=== PATIENT | female | born 1990 | race Caucasian/White ===

== ENCOUNTER 2020-01-21 00:11 | Emergency (ER) | payer OTHER ==
--- NOTE | 2020-01-21 00:46 | ERPHSYRPT ---
- History of Present Illness Time Seen by Provider: 01/21/20 00:38 Historian: patient Exam Limitations: no limitations Patient Subjective Stated Complaint: pt states she has been having abd pain for the last month. states it got worse tonight. pt states that pain "gurgles across" her abd. Triage Nursing Assessment: pt alert and oriented, answers questions approp. pt ambulatory with steady gait noted. respirations nonlabored with lungs cta. abd soft and nontender with bowel sounds present x4. skin pink warm and dry. Physician History: Vague, crampy abdominal pain that occurs with eating only with the evening meal, not with any other meal, no matter what she eats. Symptoms usually don't last long, no OTC med helps, no fever or abnormal BM's. Timing/Duration: week(s) (4), intermittent Activities at Onset: other (eating evening meal) Quality: cramping Abdominal Pain Onset Location: generalized abdomen Pain Radiation: no radiation Severity of Pain-Max: moderate Severity of Pain-Current: mild Modifying Factors: Improves With: eating (only at supper) Associated Symptoms: denies symptoms Previous symptoms: no prior history Allergies/Adverse Reactions: No Known Drug Allergies Allergy (Verified 03/29/16 20:00) Home Medications: Cyclobenzaprine HCl 10 mg [Cyclobenzaprine 10 MG] 10 mg PO TID PRN 01/21/20 [History] Omeprazole 20 mg PO DAILY 01/21/20 [History] Hx Tetanus, Diphtheria Vaccination/Date Given: No Hx Influenza Vaccination/Date Given: No Hx Pneumococcal Vaccination/Date Given: No Immunizations Up to Date: No Travel Risk - International Travel Have you traveled outside of the country in past 3 weeks: No - Coronavirus Screening Are you exhibiting any of the following symptoms?: No Close contact with a COVID-19 positive Pt in past 14-21 Days: No - Review of Systems Constitutional: No Symptoms Eyes: No Symptoms Ears, Nose, & Throat: No Symptoms Respiratory: No Symptoms Cardiac: No Symptoms Abdominal/Gastrointestinal: Abdominal Pain, Nausea Genitourinary Symptoms: No Symptoms Musculoskeletal: No Symptoms Skin: No Symptoms Neurological: No Symptoms Psychological: No Symptoms Endocrine: No Symptoms Hematologic/Lymphatic: No Symptoms Immunological/Allergic: No Symptoms All Other Systems: Reviewed and Negative - Past Medical History Pertinent Past Medical History: Yes Neurological History: Other ENT History: No Pertinent History Cardiac History: No Pertinent History Respiratory History: No Pertinent History Endocrine Medical History: No Pertinent History Musculoskeletal History: No Pertinent History GI Medical History: No Pertinent History Psycho-Social History: Attention Deficit Disorder, Depression Other Medical History: APPENDECTOMY, HAS 2 CHILDREN AND TUBES TIED. SHE HAD SURGERY ON 11/15/17WITH FOLLOW UP TO REMOVE SUTURES ON 11/28/17 AND SEES HIM BACK IN OFFICE IN 2 WEEKS. - Past Surgical History Past Surgical History: Yes Gastrointestinal: Appendectomy Female Surgical History: Tubal Ligation - Social History Smoking Status: Current every day smoker How long have you smoked: 16 years Exposure to second hand smoke: Yes Drug Use: none Patient Lives Alone: No - Female History Hx Last Menstrual Period: 1 month Hx Now: No (tubal) - Nursing Vital Signs Nursing Vital Signs: Initial Vital Signs Temperature 98.2 F 01/21/20 00:20 Pulse Rate 101 H 01/21/20 00:20 Respiratory Rate 16 01/21/20 00:20 Blood Pressure 136/80 01/21/20 00:20 O2 Sat by Pulse Oximetry 100 01/21/20 00:20 Pain Scale Pain Intensity 4 - Physical Exam General Appearance: no apparent distress, alert Eye Exam: PERRL/EOMI, eyes nml inspection Ears, Nose, Throat Exam: normal ENT inspection, moist mucous membranes Neck Exam: normal inspection Respiratory Exam: normal breath sounds Cardiovascular Exam: regular rate/rhythm Gastrointestinal/Abdomen Exam: soft, normal bowel sounds Pelvic Exam: not done Rectal Exam: deferred Back Exam: normal inspection Extremity Exam: normal inspection Neurologic Exam: alert, oriented x 3, cooperative Skin Exam: normal color SpO2 Interpretation: normal SpO2: 100 O2 Delivery: Room Air - Course Nursing assessment & vital signs reviewed: Yes - CT Exams Abdomen/Pelvis CT Interpretation: Negative, Tele-radiologist Report Ordered Tests: Active Orders 24 hr Category Date Time Status IV Insertion STAT Care 01/21/20 00:41 Completed ABDOMEN AND PELVIS W CONTRAST [CT] Stat Exams 01/21/20 00:44 Taken AMYLASE Stat Lab 01/21/20 00:41 Completed CBC W DIFF Stat Lab 01/21/20 00:41 Completed CMP Stat Lab 01/21/20 00:41 Completed HCG QUALITATIVE,SERUM Stat Lab 01/21/20 00:35 Completed LIPASE Stat Lab 01/21/20 00:41 Completed UA W/RFX UR CULTURE Stat Lab 01/21/20 02:14 Completed Medication Summary Discontinued Medications Generic Name Dose Route Start Last Admin Trade Name Kavita PRN Reason Stop Dose Admin Dicyclomine HCl 20 mg 01/21/20 02:31 01/21/20 02:43 Bentyl 20 Mg PO 01/21/20 02:32 20 mg QID ONE Administration Dicyclomine HCl Confirm 01/21/20 02:42 Bentyl 20 Mg Administered 01/21/20 02:43 Dose 20 mg .ROUTE .STK-MED ONE Lab/Rad Data: Laboratory Result Diagrams 01/21/20 00:41 01/21/20 00:41 Laboratory Results 01/21/20 01/21/20 01/21/20 Range/Units 02:14 00:41 00:41 WBC 9.3 (4.0-10.5) K/mm3 RBC 3.70 L (4.1-5.4) M/mm3 Hgb 12.0 (12.0-16.0) gm/dl Hct 36.6 (35-47) % MCV 98.9 (78-100) fl MCH 32.4 H (26-32) pg MCHC 32.8 (32-36) g/dl RDW 12.2 (11.5-14.0) % Plt Count 218 (150-450) K/mm3 MPV 10.9 (7.5-11.0) fl Gran % 75.3 H (36.0-66.0) % Eos # (Auto) 0.40 (0-0.5) Absolute Lymphs (auto) 1.21 (1.0-4.6) Absolute Monos (auto) 0.68 (0.0-1.3) Lymphocytes % 13.0 L (24.0-44.0) % Monocytes % 7.3 (0.0-12.0) % Eosinophils % 4.3 (0.00-5.0) % Basophils % 0.1 (0.0-0.4) % Absolute Granulocytes 7.04 H (1.4-6.9) Basophils # 0.01 (0-0.4) Sodium 134 L (137-145) mmol/L Potassium 3.4 L (3.5-5.1) mmol/L Chloride 105 (98-107) mmol/L Carbon Dioxide 23 (22-30) mmol/L Anion Gap 9.3 (5-15) MEQ/L BUN 17 (7-17) mg/dL Creatinine 0.62 (0.52-1.04) mg/dL Estimated GFR > 60.0 ML/MIN Glucose 130 H (74-106) mg/dL Calcium 8.5 (8.4-10.2) mg/dL Total Bilirubin 0.20 (0.2-1.3) mg/dL AST 27 (14-36) U/L ALT 17 (0-35) U/L Alkaline Phosphatase 78 (38-126) U/L Serum Total Protein 6.7 (6.3-8.2) g/dL Albumin 4.1 (3.5-5.0) g/dL Amylase 71 (30-110) U/L Lipase 62 (23-300) U/L Serum , Qual (Negative) Urine Color YELLOW (YELLOW) Urine Appearance SLIGHTLY CLOUDY (CLEAR) Urine pH 7.0 (5-6) Ur Specific [place] 1.053 (1.005-1.025) Urine Protein NEGATIVE (Negative) Urine Ketones NEGATIVE (NEGATIVE) Urine Blood NEGATIVE (0-5) Fausto/ul Urine Nitrite NEGATIVE (NEGATIVE) Urine Bilirubin NEGATIVE (NEGATIVE) Urine Urobilinogen NEGATIVE (0-1) mg/dL Ur Leukocyte Esterase SMALL (NEGATIVE) Urine WBC (Auto) 3-5 (0-5) /HPF Urine RBC (Auto) 0-2 (0-2) /HPF U Epithel Cells (Auto) FEW (FEW) /HPF Urine Bacteria (Auto) NONE (NEGATIVE) /HPF Urine Culture Reflexed NO (NO) Urine Glucose NEGATIVE (NEGATIVE) mg/dL Slides for Path Review NO 01/21/20 Range/Units 00:35 WBC (4.0-10.5) K/mm3 RBC (4.1-5.4) M/mm3 Hgb (12.0-16.0) gm/dl Hct (35-47) % MCV (78-100) fl MCH (26-32) pg MCHC (32-36) g/dl RDW (11.5-14.0) % Plt Count (150-450) K/mm3 MPV (7.5-11.0) fl Gran % (36.0-66.0) % Eos # (Auto) (0-0.5) Absolute Lymphs (auto) (1.0-4.6) Absolute Monos (auto) (0.0-1.3) Lymphocytes % (24.0-44.0) % Monocytes % (0.0-12.0) % Eosinophils % (0.00-5.0) % Basophils % (0.0-0.4) % Absolute Granulocytes (1.4-6.9) Basophils # (0-0.4) Sodium (137-145) mmol/L Potassium (3.5-5.1) mmol/L Chloride (98-107) mmol/L Carbon Dioxide (22-30) mmol/L Anion Gap (5-15) MEQ/L BUN (7-17) mg/dL Creatinine (0.52-1.04) mg/dL Estimated GFR ML/MIN Glucose (74-106) mg/dL Calcium (8.4-10.2) mg/dL Total Bilirubin (0.2-1.3) mg/dL AST (14-36) U/L ALT (0-35) U/L Alkaline Phosphatase (38-126) U/L Serum Total Protein (6.3-8.2) g/dL Albumin (3.5-5.0) g/dL Amylase (30-110) U/L Lipase (23-300) U/L Serum , Qual NEGATIVE (Negative) Urine Color (YELLOW) Urine Appearance (CLEAR) Urine pH (5-6) Ur Specific [place] (1.005-1.025) Urine Protein (Negative) Urine Ketones (NEGATIVE) Urine Blood (0-5) Fausto/ul Urine Nitrite (NEGATIVE) Urine Bilirubin (NEGATIVE) Urine Urobilinogen (0-1) mg/dL Ur Leukocyte Esterase (NEGATIVE) Urine WBC (Auto) (0-5) /HPF Urine RBC (Auto) (0-2) /HPF U Epithel Cells (Auto) (FEW) /HPF Urine Bacteria (Auto) (NEGATIVE) /HPF Urine Culture Reflexed (NO) Urine Glucose (NEGATIVE) mg/dL Slides for Path Review Unremarkable - Progress Progress: unchanged Progress Note: Symptoms seem rather minor, recurring for a month, no pattern. 01/21/20 03:16 Counseled pt/family regarding: lab results, diagnosis, need for follow-up, rad results - Departure Departure Disposition: Home Clinical Impression: Abdominal cramps Condition: Stable Critical Care Time: No Referrals: DANYELLE DUARTE [Primary Care Provider] - Instructions: Acute Abdomen (Belly Pain), Adult (DC) Additional Instructions: Monitor your diet for problem foods and see your Dr. for a recheck. You might need gallbladder testing. Prescriptions: Ondansetron ODT 4 MG [Zofran Odt 4 mg] 4 mg PO Q6H PRN PRN #20 tab.rapdis PRN Reason: Nausea/Vomiting Dicyclomine HCl 20 mg [Bentyl 20 mg] 20 mg PO BIDWMEALS #20 tablet
[2020-01-21 01:00] LABS: Absolute Neutrophil Ct (ANC) 7.04 (1.4-6.9); BASOPHIL % 0.1 % (0.0-0.4); Basophil (Absolute #) 0.01 (0-0.4); Eosinophil % 4.3 % (0.00-5.0); Hematocrit 36.6 % (35-47); Lymphocyte (Absolute #) 1.21 (1.0-4.6); Mean Cell Volume 98.9 fl (78-100); Mean Corpuscular Hemoglobin 32.4 pg (26-32); Mean Corpuscular Hgb Concent. 32.8 g/dl (32-36); Mean Platelet Volume 10.9 fl (7.5-11.0); Monocyte (Absolute #) 0.68 (0.0-1.3); Monocytes % 7.3 % (0.0-12.0); Neutrophil % 75.3 % (36.0-66.0); Platelet Count 218 K/mm3 (150-450); Red Cell Distribution Width 12.2 % (11.5-14.0); White Blood Count 9.3 K/mm3 (4.0-10.5)
[2020-01-21 01:10] LABS: ALBUMIN 4.1 g/dL (3.5-5.0); ALKALINE PHOSPHATASE 78 U/L (38-126); AMYLASE 71 U/L (30-110); ANION GAP 9.3 MEQ/L (5-15); BLOOD UREA NITROGEN 17 mg/dL (7-17); CHLORIDE 105 mmol/L (98-107); Calcium 8.5 mg/dL (8.4-10.2); Carbon Dioxide 23 mmol/L (22-30); Creatinine 1 0.62 mg/dL (0.52-1.04); EST GLOMERULAR FILTRATION RATE > 60.0 ML/MIN; Glucose 130 mg/dL (74-106); LIPASE 62 U/L (23-300); Potassium 3.4 mmol/L (3.5-5.1); SGOT/AST 27 U/L (14-36); SGPT/ALT 17 U/L (0-35); SODIUM 134 mmol/L (137-145); Total Protein 6.7 g/dL (6.3-8.2)
[2020-01-21 01:28] LABS: Slide Review 1 NO
[2020-01-21 02:20] LABS: Appearance SLIGHTLY CLOUDY (CLEAR); Bilirubin NEGATIVE (NEGATIVE); Blood NEGATIVE Ery/ul (0-5); Epithelial Cells FEW /HPF (FEW); Glucose NEGATIVE (NEGATIVE); Ketones NEGATIVE (NEGATIVE); Leukocyte Esterase SMALL (NEGATIVE); Nitrite NEGATIVE (NEGATIVE); Protein,Urine Dip NEGATIVE (Negative); RBC 0-2 /HPF (0-2); Specific Gravity 1.053 (1.005-1.025); Urobilinogen NEGATIVE mg/dL (0-1)
[2020-01-21] MEDS ORDERED: BENTYL 20 MG PO ONE (02:31)
[2020-01-21] MEDS ORDERED: BENTYL 20 MG ONE (02:42)
[2020-01-21 02:48] VITALS: BP 110/72; PULSE 91
[2020-01-21 03:17] VITALS: O2SAT 100
--- NOTE | 2020-01-21 08:46 | XRAY ---
Indication: Left back/pelvic pain, vomiting, and cramping. Multiple contiguous axial images obtained through the abdomen and pelvis using 80 cc Isovue 370 contrast only. Comparison: None Lung bases demonstrates minimal dependent atelectasis. No infiltrate or effusion. Heart is not enlarged. Noncontrasted stomach and bowel loops appear nonobstructed. Appendectomy reported. There is mild diffuse scattered colonic fecal debris throughout. 2 right ovary cysts, largest measuring 2.5 cm. No free fluid/air. Gallbladder contracted without gallstones. Remaining liver, gallbladder, pancreas, spleen, adrenal glands, kidneys, ureters, bladder, uterus, and aorta appear unremarkable. No pathologic retroperitoneal lymphadenopathy. Osseous structures intact. Impression: 1. 2.5 cm dominant right ovary cyst. 2. Diffuse fecal stasis without obstruction. 3. Remaining CT abdomen/pelvis with contrast exam is negative. Comment: Preliminary interpretation was made by [facility]. No critical discrepancy.
== END 2020-01-21 03:08 | disposition home or self-care (01) ==
LOC: ED 00:11
DX: R10.84 Generalized abdominal pain (principal)
CPT/HCPCS: 36000; 36415; 74177; 80053; 81001; 81025; 82150; 83690; 85025; 99284; A9270-GY

== ENCOUNTER 2020-01-29 06:00 | Day surgery (SDC) | payer OTHER ==
[~2020-01-29 06:00] MED LIST: DIPRIVAN 200 MG/20 ML IV ONE; Versed 2 MG/2 ML Injection ONE
[2020-01-29] MEDS ORDERED: Lactated Ringers 1,000 ML IV SCH (06:30)
[2020-01-29 09:18] VITALS: O2SAT 99
[2020-01-29 09:28] VITALS: BP 98/53; PULSE 60
--- NOTE | 2020-01-29 09:41 | OP ---
SURGERY DATE/TIME: 01/29/2020 0758 PREOPERATIVE DIAGNOSIS: Abdominal pain and chronic constipation. POSTOPERATIVE DIAGNOSIS: Normal colon, inadequate prep. PROCEDURE: Colonoscopy. SURGEON: Dr. Diaz. ANESTHESIA: MAC. Medications given by anesthesia department. HISTORY: The patient is a 29 year old female who reports problems with increasing abdominal pain particularly in the left lower quadrant. On further evaluation, the patient reports she will go a week to two weeks between bowel movements. The patient was felt the need to have endoscopic evaluation. She was appraised of the risks of the procedure including the risk of perforation, phlebitis, untoward reaction to medication, bleeding and missed lesions. The patient verbalized her understanding and desired to have the procedure performed. DESCRIPTION OF PROCEDURE: The patient was given the medications by the anesthesia department. She had continuous pulse oximetry, ECG monitoring, intermittent blood pressure monitoring and tidal CO2 monitoring during the examination. Prior to the examination after discussion the patient reports that her colon is clear but we gave her an extra day of prep including a couple Dulcolax tablets the day before the regular prep. The patient told me she was clear before the examination. The patient was placed in left lateral decubitus position. A digital rectal examination was performed and revealed normal anal sphincter tone and no masses. The flexible Olympus pediatric colonoscope was used to intubate the rectum. A view of the colon was developed to the cecum. On initial insertion we began running into fairly solid stool which is present essentially throughout the colon. The prep was considered to be inadequate but we felt it was necessary to evaluate the colon as best we could under the circumstances. We saw no mucosal lesions in the part of the colon that we could see but likely only saw 60% of the colon lumen. The scope was withdrawn from the patient who tolerated the procedure well and was sent back to OP recovery in good condition. Again the prep was considered to be inadequate.
== END 2020-01-29 09:30 | disposition home or self-care (01) ==
LOC: SDC 06:00
PROVIDERS: ATTEND Family Medicine
DX: R10.9 Unspecified abdominal pain (principal); K59.09 Other constipation
CPT/HCPCS: 84703; J2250; J2704